=== PATIENT | male | born 1955 | race Caucasian/White ===

== ENCOUNTER 2016-07-27 12:23 | Emergency (ER) | payer OTHER ==
[~2016-07-27] VITALS: Ht 172.7 cm; Wt 87.6 kg
[~2016-07-27 12:23] MED LIST: ASPEC81 PO; CHOLESTEROL; [UNRECOGNIZED DRUG - REMARK]
[2016-07-27 12:32] VITALS: TEMP 36.7; Ht 172.7 cm; Wt 87.6 kg
[2016-07-27] MEDS ORDERED: LPT/40 PO (12:52)
[2016-07-27] MEDS ORDERED: OMEP40CA41 PO (12:52)
[2016-07-27] MEDS ORDERED: ASPI81TA28 PO (12:52)
[2016-07-27] MEDS ORDERED: SERT-234 PO (12:52)
[2016-07-27 13:18] VITALS: O2SAT 96
[2016-07-27 13:23] LABS: HEMATOCRIT 45.8 % (42-52); MEAN CELL VOLUME 88.9 fL (80-100); MEAN CORPUSCULAR HEMOGLOBIN 30.9 pg (25-34); MEAN CORPUSCULAR HGB CONC 34.7 g/dl (32-36); MEAN PLATELET VOLUME 10.1 fL (7.4-10.4); PLATELET COUNT 221 K/uL (130-400); RED BLOOD COUNT 5.15 M/uL (4.7-6.1); WHITE BLOOD COUNT 5.54 K/uL (4.8-10.8)
[2016-07-27] MEDS ORDERED: ONDANSETRON INJ 2 MG/ML 2 ML VIAL IV STA (13:38)
[2016-07-27] MEDS ORDERED: SODIUM CHLORIDE 0.9% 1000ML 1,000 ML IV STA (13:38)
[2016-07-27 13:43] LABS: BUN/CREATININE RATIO 12.8 (10-20); CALCIUM 9.5 mg/dl (8.5-10.1); CREATININE 1.1 mg/dl (0.60-1.40); POTASSIUM 4.2 mmol/L (3.5-5.1)
[2016-07-27] MEDS ORDERED: PANTOprazole INJ 40 MG in SYRINGE 0 ML IV ONE (13:45)
--- NOTE | 2016-07-27 13:45 | EMERGENCY ROOM VISIT NOTE ---
History Report prepared by Jamel: Harsha Dinh Under the Supervision of: Dr. Leobardo Jacinto D.O. First contact with patient: 13:30 Chief Complaint: CHEST PAIN Stated Complaint: CHEST PAIN Nursing Triage Summary: Pt c/o left sided CP that started 45 mins [employer] Pt reports abd pain also "some" SOB denies hx History of Present Illness The patient is a 60 year old male who presents to the Emergency Room with complaints of persistent severe left-sided chest pain that started this morning. The pain is also felt in the upper abdomen. The pain does not radiate to his back, but he has had lower back pain. The patient denies neck pain. He also complains of nausea and some bright-red blood that has been mixed in his stools. He denies urinary symptoms. The patient follows up for an AAA. He is s/ p carotid endarterectomy. He has hypercholesterolemia and denies hypertension or diabetes. The patient is a former smoker and drinks alcohol occasionally. Source of History: patient Onset: this morning Position: chest (left) Symptom Intensity: severe Timing: other (persistent) Associated Symptoms: + abdominal pain, + back pain, + hematochezia, No urinary symptoms Review of Systems See HPI for pertinent positives & negatives. A total of 10 systems reviewed and were otherwise negative. Past Medical & Surgical Medical Problems: (1) AAA (abdominal aortic aneurysm) (2) HLD (hyperlipidemia) Surgical Problems: (1) S/P carotid endarterectomy Family History No pertinent family history Social History Smoking Status: Former Smoker Marital Status: Housing Status: lives with family Current/Historical Medications Scheduled Aspirin (Aspirin Ec), 81 MG PO DAILY Atorvastatin (Lipitor), 40 MG PO HS Ciprofloxacin Hcl (Cipro), 500 MG PO BID Metronidazole (Flagyl), 500 MG PO TID Omeprazole (Prilosec), 40 MG PO DAILY Ranitidine Hcl (Zantac), 150 MG PO BID Sertraline (Zoloft), 100 MG PO DAILY Scheduled PRN Oxycodone Immediate Rel Tab (Roxicodone Ir), 1-2 TAB PO Q4H PRN for Severe Pain Allergies Coded Allergies: No Known Allergies (Unverified , 07/27/16) Physical Exam Vital Signs Date Time Temp Pulse Resp B/P Pulse Ox O2 Delivery O2 Flow Rate FiO2 07/27/16 18:03 92 18 156/97 93 07/27/16 17:37 93 18 152/102 93 Room Air 07/27/16 17:19 94 07/27/16 16:05 85 16 141/88 97 Room Air 07/27/16 15:13 88 16 162/99 92 Room Air 07/27/16 14:00 93 24 187/114 95 Room Air 07/27/16 13:19 98 Room Air 07/27/16 13:18 96 Room Air 07/27/16 13:05 81 07/27/16 12:49 96 Room Air 07/27/16 12:48 96 Room Air 07/27/16 12:32 36.7 79 20 194/94 96 Room Air Physical Exam GENERAL: Patient is awake, alert, very anxious and uncomfortable appearing, appears to be in significant pain. EYES: The conjunctivae are clear. The pupils are round and reactive. EARS, NOSE, MOUTH AND THROAT: The nose is without any evidence of any deformity. Mucous membranes are moist tongue is midline NECK: The neck is nontender and supple. RESPIRATORY: Normal respiratory effort is noted there is no evidence of wheezing rhonchi or rales CARDIOVASCULAR: Regular rate and rhythm noted there no murmurs rubs or gallops normal S1 normal S2 GASTROINTESTINAL: Abdomen is moderately distended with tenderness in the epigastric region, no guarding or rigidity of the lower abdomen. MUSCULOSKELETAL/EXTREMITIES: There is no evidence of gross deformity full range of motion is noted in the hips and shoulders SKIN: There is no obvious evidence of any rash. There are no petechiae, pallor or cyanosis noted. NEUROLOGIC: Patient is awake alert and oriented x3. Medical Decision & Procedures ER Provider Diagnostic Interpretation: Radiology results as stated below per my review and radiologist interpretation: ABDOMEN AND PELVIS CT WITH IV CONTRAST CT DOSE: 1064.45 mGy.cm HISTORY: Pain lower chest, upper abd pain TECHNIQUE: Multiaxial CT images of the abdomen and pelvis were performed following the use of intravenous contrast. COMPARISON STUDY: None. FINDINGS: Lung bases are remarkable for bibasilar atelectatic change versus minimal infiltrative change. 3 mm low suspicion based nodule lateral aspect right base. Liver is uniform throughout. Gallbladder is negative for distention, although a tiny gallstone is present in the gallbladder neck. There are findings of scattered colonic diverticulosis. There are findings of a chronic sigmoid diverticulosis of the proximal and mid aspect of the sigmoid. May be a trace amount pericolonic infiltrative change. There is aneurysmal dilatation of the mid abdominal aorta. This is approximately at the level of the renal jessica. This measures 4.0 x 4.8 cm and is partial partially thrombus filled. It is composed of the appendix are unremarkable. Bladder is midline. There is no evidence for abscess collection or obstruction.. Spleen is unremarkable. IMPRESSION: 1. Chronic colonic and to a greater extent sigmoid diverticulosis. 2. Mild superimposed acute diverticulitis of the proximal sigmoid colon with no evidence for abscess collection or obstruction. 3. Aneurysmal dilatation mid abdominal aorta with transaxial measurements of 4.0 x 4.8 cm. 4. A tiny gallstone with slight pericholecystic infiltrative change. 5. right upper quadrant ultrasound suggested as follow-up. 6. Bibasilar parenchymal atelectatic and/or infiltrative changes. Electronically signed by: Irvin Frias M.D. 07/27/2016 3:29 PM Dictated Date/Time: 07/27/2016 3:[address] OF THE CHEST WITH IV CONTRAST CLINICAL HISTORY: Lower chest and upper abdominal pain. COMPARISON STUDY: Chest radiograph performed earlier today. TECHNIQUE: Following IV administration of 119 mL of Optiray-320, helical axial images of the chest were obtained. Images were viewed in the axial, sagittal and coronal planes. IV contrast was administered without complication. FINDINGS: No enlarged thoracic lymph nodes are present. There are few prominent bilateral hilar lymph nodes. The size of the heart is at the upper limits of normal. There is no evidence of thoracic aortic dissection. No pneumothorax or pleural effusion is present. There is moderate upper lobe predominant emphysema. A few small pulmonary nodules are noted, including a 5 mm left upper lobe nodule shown on image 50 of 316. There is a 5 mm right upper lobe nodule shown image 169. There are several smaller nodules. Dependent airspace opacities favor atelectasis. The bony thorax is unremarkable. Visualized portions of the upper abdomen demonstrate suspected small gallstones within the gallbladder. There is mild pericholecystic infiltration and mild infiltration within the lillie hepatis. An abdominal aortic aneurysm is better depicted on the abdominal CT. IMPRESSION: 1. No acute findings within the chest. 2. Suspected small gallstones within the gallbladder with mild infiltration within the lillie hepatis and minimal pericholecystic infiltration. The findings raise the possibility of acute cholecystitis. A hepatobiliary scan could be obtained as indicated. 3. Dependent airspace opacities within the lungs which favor atelectasis. 4. Moderate emphysema. 5. Several small pulmonary nodules measuring up to 5 mm. These are probably benign but a follow-up chest CT in 6 months to ensure stability is recommended. Electronically signed by: Andrew Downs M.D. 07/27/2016 3:22 PM Dictated Date/Time: 07/27/2016 3:12 PM CHEST ONE VIEW PORTABLE CLINICAL HISTORY: Chest pain. COMPARISON STUDY: No previous studies for comparison. FINDINGS: Lung volumes are normal. There is no pneumothorax or pleural effusion. There is mild left lower lung interstitial thickening. No consolidation is identified. Cardiac size is at the upper limits of normal. There is no evidence of pulmonary edema. IMPRESSION: Mild left lower lung interstitial thickening. This may reflect a mild infectious process. Radiographic follow up is recommended. No lobar consolidation. Electronically signed by: Andrew Downs M.D. 07/27/2016 2:02 PM Dictated Date/Time: 07/27/2016 2:01 PM Right upper quadrant ultrasound GALLBLADDER-ABD LIMITED CLINICAL HISTORY: upper abd pain nausea TECHNIQUE: Ultrasound COMPARISON STUDY: None FINDINGS: Normal gallbladder. No shadowing gallstones. Common bile duct 4 mm. Pancreas and right kidney are unremarkable. IMPRESSION: Normal study. The CT findings relating to the gallbladder appear to be artifactual. Electronically signed by: Irvin Frias M.D. 07/27/2016 4:40 PM Dictated Date/Time: 07/27/2016 4:39 PM Laboratory Results 07/27/16 12:40 07/27/16 12:40 Test 07/27/16 12:40 07/27/16 13:28 Red Blood Count 5.15 M/uL (4.7-6.1) Mean Corpuscular Volume 88.9 fL (80-100) Mean Corpuscular Hemoglobin 30.9 pg (25-34) Mean Corpuscular Hemoglobin Concent 34.7 g/dl (32-36) RDW Standard Deviation 42.3 fL (36.4-46.3) RDW Coefficient of Variation 12.9 % (11.5-14.5) Mean Platelet Volume 10.1 fL (7.4-10.4) Prothrombin Time 10.7 SECONDS (9.0-12.0) Prothromb Time International Ratio 1.0 (0.9-1.1) Activated Partial Thromboplast Time 25.2 SECONDS (21.0-31.0) Partial Thromboplastin Ratio 1.0 Anion Gap 9.0 mmol/L (3-11) Est Creatinine Clear Calc Drug Dose 75.9 ml/min Estimated GFR () 83.5 Estimated GFR (Non- 72.1 BUN/Creatinine Ratio 12.8 (10-20) Calcium Level 9.5 mg/dl (8.5-10.1) Total Bilirubin 0.5 mg/dl (0.2-1) Aspartate Amino Transf (AST/SGOT) 16 U/L (15-37) Alanine Aminotransferase (ALT/SGPT) 26 U/L (12-78) Alkaline Phosphatase 69 U/L (45-117) Total Creatine Kinase 102 U/L (39-308) Creatine Kinase MB 1.0 ng/ml (0.5-3.6) Creatine Kinase MB Ratio 1.0 (0-3.0) Total Protein 7.5 gm/dl (6.4-8.2) Albumin 4.0 gm/dl (3.4-5.0) Globulin 3.5 gm/dl (2.5-4.0) Albumin/Globulin Ratio 1.1 (0.9-2) Bedside Troponin I 0.000 ng/ml (0-0.045) Laboratory results per my review. Medications Administered Medications (Trade) Dose Ordered Sig/Alan Route Start Time Stop Time Status Last Admin Dose Admin Sodium Chloride 1,000 ml @ 999 mls/hr Q1H1M STAT IV 07/27/16 13:38 07/27/16 14:38 DC 07/27/16 13:57 999 MLS/HR Pantoprazole Sodium/Syringe (Protonix Inj/ Syringe) 10 ml @ 5 mls/min NOW ONCE IV 07/27/16 13:45 07/27/16 13:46 DC 07/27/16 13:57 5 MLS/MIN Morphine Sulfate (MoRPHine SULFATE INJ) 4 mg Q15M PRN IV 07/27/16 13:45 07/27/16 18:41 DC 07/27/16 14:39 4 MG Ondansetron HCl (Zofran Inj) 4 mg NOW STAT IV 07/27/16 13:38 07/27/16 13:40 DC 07/27/16 13:57 4 MG Ciprofloxacin (Cipro Tab) 500 mg NOW STAT PO 07/27/16 17:05 07/27/16 17:06 DC 07/27/16 17:39 500 MG Metronidazole (Flagyl Tab) 500 mg NOW STAT PO 07/27/16 17:05 07/27/16 17:06 DC 07/27/16 17:38 500 MG ECG Indication: chest pain Rate (beats per minute): 70 Rhythm: normal sinus Findings: no acute ischemic change, no ectopy Comparison ECG Date: no prior available ED Course 1334: The patient was evaluated in room C11b. A complete history and physical examination were performed. 1338: Zofran 4 mg IV, NSS 1000 ml @ 999 mls/hr. 1345: Morphine Sulfate 4 mg IV, Protonix 40 mg / syringe 10 ml @ 5 mls/min. 1440: The patient is feeling better. 1701: Discussed the imaging studies with him. 1705: Flagyl 500 mg PO, Cipro 500 mg PO. 1733: Reviewed CT from 08/15/2015. The mural thrombus is not new. 1745: Reassessed the patient. Discussed the findings with him. He verbalized understanding and agreement of the treatment plan. The patient is ready for discharge. Medical Decision Prior records/ancillary studies reviewed. Triage Nursing notes reviewed. The patient's history was concerning for chest pain. Differential diagnosis: Etiologies such as cardiac ischemia, aortic dissection, pulmonary embolism, pneumonia, pneumothorax, musculoskeletal, infections, pericarditis, myocarditis , esophageal rupture, gastrointestinal, as well as others were entertained. The patient is a 60-year-old male who presented to the emergency department for an evaluation of upper abdominal pain. The patient initially complained of left sided chest pain but his pain appeared to be mostly in his upper abdomen on physical exam. He also had diffuse abdominal tenderness. The patient's EKG did not reveal any acute ischemic changes. His cardiac biomarkers did not reveal any abnormalities. The patient does have a history of a AAA. I did CT the patient's chest and abdomen with the concerns that he may have a dissection or possibly a worsening of his AAA. I was able to compare the CT report in our department to one he had in August of 2015. I discussed the patient's laboratory and radiographic studies with him and his significant other. He was treated with IV fluids IV pain medicine and IV antiemetics in the emergency department. On subsequent reevaluation he was feeling much better. The radiologist did feel that some of his diverticulosis could be acute in nature. For this reason he was started on antibiotics pain medication and H2 blockers. He was encouraged to rest and avoid any strenuous activity. He was also encouraged to continue all medications as prescribed and follow-up with his family doctor soon as possible. He was also encouraged to return to the emergency department immediately if symptoms change worsen or the need arises. Impression Primary Impression: Epigastric abdominal pain Additional Impression: Diverticulitis Scribe Attestation The scribe's documentation has been prepared under my direction and personally reviewed by me in its entirety. I confirm that the note above accurately reflects all work, treatment, procedures, and medical decision making performed by me. Departure Information Dispostion Home / Self-Care Prescriptions Oxycodone Immediate Rel Tab (ROXICODONE IR) 5 Mg Tab 1-2 TAB PO Q4H Y for Severe Pain, #24 TAB Prov: Leobardo Jacinto, DO 07/27/16 Metronidazole (FLAGYL) 500 Mg Tab 500 MG PO TID, #30 TAB Prov: Leobardo Jacinto, DO 07/27/16 Ciprofloxacin Hcl (CIPRO) 500 Mg Tab 500 MG PO BID, #20 TAB Prov: Leobardo Jacinto, DO 07/27/16 Ranitidine Hcl (ZANTAC) 150 Mg Tab 150 MG PO BID, #60 TAB Prov: Leobardo Jacinto, DO 07/27/16 Referrals Zakiya Arndt M.D. (PCP) Forms HOME CARE DOCUMENTATION FORM, IMPORTANT VISIT INFORMATION, Work Instructions Patient Instructions ED Diverticulitis, [facility] Additional Instructions Call your family to schedule a follow-up appointment. Rest and avoid any strenuous activity. Continue all medications as prescribed. Return to the emergency Department immediately if symptoms change worsen or the need arises. Problem Qualifiers Additional Impression: Diverticulitis Diverticulitis site: large intestine Diverticulitis bleeding: with bleeding Diverticulitis complication: without perforation or abscess Qualified Codes : K57.33 - Diverticulitis of large intestine without perforation or abscess with bleeding
[2016-07-27 13:46] LABS: PROTHROMBIN TIME (PATIENT) 10.7 SECONDS (9.0-12.0)
[2016-07-27 13:48] LABS: ALB/GLOB RATIO 1.1 (0.9-2)
[2016-07-27] MEDS: MoRPHine SULFATE 4 MG/ML 1 ML CARP\\VIAL IV PRN ×2 (13:58→14:39)
--- NOTE | 2016-07-27 14:03 | DIAGNOSTIC IMAGING REPORT ---
CHEST ONE VIEW PORTABLE CLINICAL HISTORY: Chest pain. COMPARISON STUDY: No previous studies for comparison. FINDINGS: Lung volumes are normal. There is no pneumothorax or pleural effusion. There is mild left lower lung interstitial thickening. No consolidation is identified. Cardiac size is at the upper limits of normal. There is no evidence of pulmonary edema. IMPRESSION: Mild left lower lung interstitial thickening. This may reflect a mild infectious process. Radiographic follow up is recommended. No lobar consolidation. Electronically signed by: Andrew Downs M.D. 07/27/2016 2:02 PM Dictated Date/Time: 07/27/2016 2:01 PM
[2016-07-27] MEDS ORDERED: OPTIRAY 320 IV PRN (14:45)
--- NOTE | 2016-07-27 15:24 | DIAGNOSTIC IMAGING REPORT ---
CT OF THE CHEST WITH IV CONTRAST CLINICAL HISTORY: Lower chest and upper abdominal pain. COMPARISON STUDY: Chest radiograph performed earlier today. TECHNIQUE: Following IV administration of 119 mL of Optiray-320, helical axial images of the chest were obtained. Images were viewed in the axial, sagittal and coronal planes. IV contrast was administered without complication. FINDINGS: No enlarged thoracic lymph nodes are present. There are few prominent bilateral hilar lymph nodes. The size of the heart is at the upper limits of normal. There is no evidence of thoracic aortic dissection. No pneumothorax or pleural effusion is present. There is moderate upper lobe predominant emphysema. A few small pulmonary nodules are noted, including a 5 mm left upper lobe nodule shown on image 50 of 316. There is a 5 mm right upper lobe nodule shown image 169. There are several smaller nodules. Dependent airspace opacities favor atelectasis. The bony thorax is unremarkable. Visualized portions of the upper abdomen demonstrate suspected small gallstones within the gallbladder. There is mild pericholecystic infiltration and mild infiltration within the lillie hepatis. An abdominal aortic aneurysm is better depicted on the abdominal CT. IMPRESSION: 1. No acute findings within the chest. 2. Suspected small gallstones within the gallbladder with mild infiltration within the lillie hepatis and minimal pericholecystic infiltration. The findings raise the possibility of acute cholecystitis. A hepatobiliary scan could be obtained as indicated. 3. Dependent airspace opacities within the lungs which favor atelectasis. 4. Moderate emphysema. 5. Several small pulmonary nodules measuring up to 5 mm. These are probably benign but a follow-up chest CT in 6 months to ensure stability is recommended. Electronically signed by: Andrew Downs M.D. 07/27/2016 3:22 PM Dictated Date/Time: 07/27/2016 3:12 PM
--- NOTE | 2016-07-27 15:30 | DIAGNOSTIC IMAGING REPORT ---
ABDOMEN AND PELVIS CT WITH IV CONTRAST CT DOSE: 1064.45 mGy.cm HISTORY: Pain lower chest, upper abd pain TECHNIQUE: Multiaxial CT images of the abdomen and pelvis were performed following the use of intravenous contrast. COMPARISON STUDY: None. FINDINGS: Lung bases are remarkable for bibasilar atelectatic change versus minimal infiltrative change. 3 mm low suspicion based nodule lateral aspect right base. Liver is uniform throughout. Gallbladder is negative for distention, although a tiny gallstone is present in the gallbladder neck. There are findings of scattered colonic diverticulosis. There are findings of a chronic sigmoid diverticulosis of the proximal and mid aspect of the sigmoid. May be a trace amount pericolonic infiltrative change. There is aneurysmal dilatation of the mid abdominal aorta. This is approximately at the level of the renal jessica. This measures 4.0 x 4.8 cm and is partial partially thrombus filled. It is composed of the appendix are unremarkable. Bladder is midline. There is no evidence for abscess collection or obstruction.. Spleen is unremarkable. IMPRESSION: 1. Chronic colonic and to a greater extent sigmoid diverticulosis. 2. Mild superimposed acute diverticulitis of the proximal sigmoid colon with no evidence for abscess collection or obstruction. 3. Aneurysmal dilatation mid abdominal aorta with transaxial measurements of 4.0 x 4.8 cm. 4. A tiny gallstone with slight pericholecystic infiltrative change. 5. right upper quadrant ultrasound suggested as follow-up. 6. Bibasilar parenchymal atelectatic and/or infiltrative changes. Electronically signed by: Irvin Frias M.D. 07/27/2016 3:29 PM Dictated Date/Time: 07/27/2016 3:20 PM
--- NOTE | 2016-07-27 16:42 | DIAGNOSTIC IMAGING REPORT ---
Right upper quadrant ultrasound GALLBLADDER-ABD LIMITED CLINICAL HISTORY: upper abd pain nausea TECHNIQUE: Ultrasound COMPARISON STUDY: None FINDINGS: Normal gallbladder. No shadowing gallstones. Common bile duct 4 mm. Pancreas and right kidney are unremarkable. IMPRESSION: Normal study. The CT findings relating to the gallbladder appear to be artifactual. Electronically signed by: Irvin Frias M.D. 07/27/2016 4:40 PM Dictated Date/Time: 07/27/2016 4:39 PM
[2016-07-27] MEDS ORDERED: METRONIDAZOLE 250 MG TAB PO STA (17:05)
[2016-07-27] MEDS ORDERED: CIPROFLOXACIN 500 MG TAB PO STA (17:05)
[2016-07-27] MEDS ORDERED: CIPR-255 PO (17:09)
[2016-07-27] MEDS ORDERED: OXYC1TAB3 PO (17:09)
[2016-07-27] MEDS ORDERED: METR-162 PO (17:09)
[2016-07-27] MEDS ORDERED: RANI150T3 PO (17:09)
[2016-07-27 18:03] VITALS: BP 156/97; PULSE 92; O2SAT 93
== END 2016-07-27 18:04 | disposition home or self-care (01) ==
LOC: C.EDB 12:24 → C.EDC 18:04
DX: R10.9 Unspecified abdominal pain (principal); K57.33 Diverticulitis of large intestine without perforation or abscess with bleeding; I71.4 Abdominal aortic aneurysm, without rupture; E78.5 Hyperlipidemia, unspecified; Z87.891 Personal history of nicotine dependence; Z79.82 Long term (current) use of aspirin; J43.9 Emphysema, unspecified; R91.1 Solitary pulmonary nodule

== ENCOUNTER → 2016-09-27 | Outpatient (CLI) | payer OTHER ==
[~2016-09-27] MED LIST changes: -ASPEC81 PO; +ASPI81TA28 PO; -CHOLESTEROL; +CIPR-255 PO; +LPT/40 PO; +OMEP40CA41 PO; +OXYC1TAB3 PO; +RANI150T3 PO; +SERT-234 PO; -[UNRECOGNIZED DRUG - REMARK]
[2016-09-27 13:21] LABS: BASO % 0.5 %; BASO ABS # 0.03 K/uL (0-0.2); COMPLETE YES; EOS % 4.1 %; HEMATOCRIT 48.5 % (42-52); IG% 0.2 %; MEAN CORPUSCULAR HEMOGLOBIN 30.6 pg (25-34); MEAN PLATELET VOLUME 9.9 fL (7.4-10.4); MONO % 7.9 %; NEUT % 68.3 %; PLATELET COUNT 218 K/uL (130-400); RED BLOOD COUNT 5.39 M/uL (4.7-6.1)
[2016-09-27 14:30] LABS: CALCIUM 9.6 mg/dl (8.5-10.1)
[2016-09-27 14:31] LABS: ALT/SGPT 32 U/L (12-78); BLOOD UREA NITROGEN 17 mg/dl (7-18); BUN/CREATININE RATIO 13.8 (10-20); CARBON DIOXIDE 25 mmol/L (21-32); CHLORIDE 107 mmol/L (98-107); CHOLESTEROL 211 mg/dl (0-200); GLUCOSE 101 mg/dl (70-99); POTASSIUM 4.1 mmol/L (3.5-5.1); SODIUM 142 mmol/L (136-145); TRIGLYCERIDES 114 mg/dl (0-150); VERY LOW DENSITY LIPOPROT CALC 23 mg/dl
[2016-09-27 14:34] LABS: ALB/GLOB RATIO 1.1 (0.9-2); ALKALINE PHOSPHATASE 70 U/L (45-117); AST/SGOT 22 U/L (15-37); CHOLESTEROL/HDL RATIO 4.7; HDL CHOLESTEROL 45 mg/dl; LDL CHOLESTEROL CALCULATED 143 mg/dl
== END | disposition home or self-care (01) ==
LOC: C.LABMFLN 08:28
PROVIDERS: ATTEND Family Medicine
DX: I25.10 Atherosclerotic heart disease of native coronary artery without angina pectoris (principal); E78.5 Hyperlipidemia, unspecified

== ENCOUNTER → 2017-03-04 | Outpatient (CLI) | payer OTHER ==
[~2017-03-04] MED LIST changes: -OXYC1TAB3 PO; -RANI150T3 PO
== END | disposition home or self-care (01) ==
LOC: C.LABSPEC 12:50
PROVIDERS: ATTEND Family Medicine
DX: R19.7 Diarrhea, unspecified (principal)

== ENCOUNTER → 2017-06-02 | Outpatient (CLI) | payer OTHER ==
[2017-06-02 13:08] LABS: BASO % 0.7 %; BASO ABS # 0.04 K/uL (0-0.2); COMPLETE YES; EOS % 4.7 %; HEMATOCRIT 43.1 % (42-52); IG% 0.2 %; LYMPH % 21.2 %; LYMPH ABS # 1.13 K/uL (1.2-3.4); MEAN CELL VOLUME 88.1 fL (80-100); MEAN CORPUSCULAR HEMOGLOBIN 29.2 pg (25-34); MEAN CORPUSCULAR HGB CONC 33.2 g/dl (32-36); MEAN PLATELET VOLUME 10.1 fL (7.4-10.4); MONO % 11.2 %; PLATELET COUNT 205 K/uL (130-400); RED BLOOD COUNT 4.89 M/uL (4.7-6.1); WHITE BLOOD COUNT 5.34 K/uL (4.8-10.8)
== END | disposition home or self-care (01) ==
LOC: C.LABMFLN 08:35
PROVIDERS: ATTEND Family Medicine
DX: E53.8 Deficiency of other specified B group vitamins (principal); D50.0 Iron deficiency anemia secondary to blood loss (chronic)

== ENCOUNTER → 2017-10-04 | Outpatient (CLI) | payer OTHER | END | disposition home or self-care (01) | LOC: C.LABMFLN 08:27 | PROVIDERS: ATTEND Family Medicine | DX: E78.5 Hyperlipidemia, unspecified (principal); E53.8 Deficiency of other specified B group vitamins; Z12.5 Encounter for screening for malignant neoplasm of prostate ==